=== PATIENT | female | born 1990 | race Caucasian/White ===

== ENCOUNTER 2020-02-08 21:25 | Emergency (ER) | payer OTHER ==
[~2020-02-08] VITALS: Ht 170.2 cm; Wt 54.4 kg
[2020-02-08] MEDS ORDERED: TYLENOR (21:54)
[2020-02-08] MEDS ORDERED: VITAMINA B-12 (21:55)
== END 2020-02-09 00:59 | disposition home or self-care (01) ==
LOC: ER 21:25
DX: B34.9 Viral infection, unspecified (principal); B96.0 Mycoplasma pneumoniae [M. pneumoniae] as the cause of diseases classified elsewhere